=== PATIENT | male | born 1940 | race American Indian/Alaskan Native ===

== ENCOUNTER 2020-05-15 | Outpatient (REF) | payer OTHER, SELFPAY ==
[2020-05-16 11:29] LABS: Microalbumin Urine < 5.0 mg/L
== END 2020-05-15 00:01 | disposition home or self-care (01) ==
LOC: HO.LNP
PROVIDERS: Visit Provider Family Medicine
DX: E11.9 Type 2 diabetes mellitus without complications (principal)
CPT/HCPCS: 82043

== ENCOUNTER → 2020-12-18 09:56 | Outpatient (BNVA) | payer OTHER, SELFPAY | PROVIDERS: PCP Family Medicine; Referring Provider Family Medicine; Visit Provider Internal Medicine Cardiovascular Disease ==

== ENCOUNTER 2021-01-17 11:48 | Outpatient (REF) | payer OTHER, MEDICARE, SELFPAY ==
--- NOTE | ~2021-01-17 | XR_ITS ---
EXAMINATION: BILATERAL SHOULDER CLINICAL INFORMATION: Pain bilateral shoulder COMPARISON: None TECHNIQUE: 4 views each shoulder FINDINGS: Right shoulder: The glenohumeral joint space is normal. There is loss of AC joint space with inferior periarticular spurring. No acute fracture, loose bodies or joint effusion seen. Left shoulder: There is mild loss of left AC and glenohumeral joint space.. No is no loose bodies, bony erosive changes. The soft tissues are normal. XR/XR shoulder LT min 2V IMPRESSION: Mild to moderate degenerative changes bilateral AC joint and glenohumeral joint space. No visible acute fracture, dislocation or subluxation seen.
--- NOTE | ~2021-01-17 | XR_ITS ---
EXAMINATION: BILATERAL SHOULDER CLINICAL INFORMATION: Pain bilateral shoulder COMPARISON: None TECHNIQUE: 4 views each shoulder FINDINGS: Right shoulder: The glenohumeral joint space is normal. There is loss of AC joint space with inferior periarticular spurring. No acute fracture, loose bodies or joint effusion seen. Left shoulder: There is mild loss of left AC and glenohumeral joint space.. No is no loose bodies, bony erosive changes. The soft tissues are normal. XR/XR shoulder RT min 2V IMPRESSION: Mild to moderate degenerative changes bilateral AC joint and glenohumeral joint space. No visible acute fracture, dislocation or subluxation seen.
[2021-01-17 13:40] LABS: Estimated Average Glucose 111 mg/dL; Hemoglobin A1c % 5.5 %
[2021-01-17 14:00] LABS: Alanine Aminotransferase 14 U/L (0-40); Albumin Level 4.1 g/dL (3.5-5.0); Alkaline Phosphatase 51 U/L (39-117); Anion Gap 13 (12-20); Aspartate Amino Transferase 22 U/L (5-37); Bilirubin Total 0.9 mg/dL (0.0-1.0); Blood Urea Nitrogen 18 mg/dL (9-16); Calcium 8.9 mg/dL (8.4-10.2); Carbon Dioxide 24 mmol/L (22-29); Chloride 106 mmol/L (96-108); Estimated Glomerular Filt Rate 60; Glucose Random 98 mg/dL (60-115); Potassium 5.1 mmol/L (3.3-5.1); Sodium 138 mmol/L (135-145); Total Protein 6.8 g/dL (6.5-8.0)
[2021-01-17 14:22] LABS: Folate 10.4 ng/mL (> or = 4.0); Vitamin B12 268 pg/mL (200-900)
[2021-01-17 16:51] LABS: Creatinine Urine 64.84 mg/dL; Microalbumin Urine < 5.0 mg/L
== END 2021-01-17 11:49 | disposition home or self-care (01) ==
LOC: HO.XRAY 11:48
PROVIDERS: PCP Family Medicine; Visit Provider Family Medicine
DX: M25.511 Pain in right shoulder (principal); M25.512 Pain in left shoulder; I10 Essential (primary) hypertension; R73.03 Prediabetes; E53.8 Deficiency of other specified B group vitamins; R26.89 Other abnormalities of gait and mobility
CPT/HCPCS: 36415; 73030; 80053; 82043; 82607; 82746; 83036

== ENCOUNTER 2021-04-03 10:23 | Outpatient (REF) | payer MEDICARE, SELFPAY ==
[2021-04-03 12:08] LABS: Alanine Aminotransferase 16 U/L (0-40); Albumin Level 4.4 g/dL (3.5-5.0); Alkaline Phosphatase 54 U/L (39-117); Anion Gap 15 (12-20); Aspartate Amino Transferase 24 U/L (5-37); Bilirubin Total 0.7 mg/dL (0.0-1.0); Blood Urea Nitrogen 17 mg/dL (9-16); Calcium 9.1 mg/dL (8.4-10.2); Carbon Dioxide 24 mmol/L (22-29); Chloride 105 mmol/L (96-108); Estimated Glomerular Filt Rate > 60; Glucose Fasting 98 mg/dL (60-99); Potassium 4.9 mmol/L (3.3-5.1); Sodium 139 mmol/L (135-145); Total Protein 7.2 g/dL (6.5-8.0)
[2021-04-03 12:11] LABS: Creatinine Urine 89.64 mg/dL; Microalbum/Creatinine Ratio Ur 11.1 ug/mg cr
== END 2021-04-03 10:24 | disposition home or self-care (01) ==
LOC: HO.LAB 10:23
PROVIDERS: PCP Family Medicine; Visit Provider Family Medicine
DX: Z00.00 Encounter for general adult medical examination without abnormal findings (principal); E11.9 Type 2 diabetes mellitus without complications; I10 Essential (primary) hypertension
CPT/HCPCS: 36415; 80053; 82043

== ENCOUNTER → 2021-04-04 11:11 | Outpatient (BNVA) | payer OTHER, MEDICARE, SELFPAY | PROVIDERS: PCP Family Medicine; Visit Provider Physician Assistant | DX: M75.102 Unspecified rotator cuff tear or rupture of left shoulder, not specified as traumatic (principal) | CPT/HCPCS: 99202; J1040 ==

== ENCOUNTER 2021-04-09 14:00 | Outpatient (RCR) | payer OTHER, MEDICARE, SELFPAY ==
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
--- NOTE | 2021-04-16 11:43 | MHC.PT.DC ---
[facility] [place] Office [place] Office [place] Office [address] Kylah Parker 140 [facility] [phone] F: [phone] F: [phone] F: [phone] F: [phone] Physical Therapy Discharge Report Diagnosis: LEFT SHOULDER / LEFT UE STRAIN Date of Surgery: Date of Evaluation: 02/11/21 Date of Discharge: 04/16/21 Treatments to Date: 7 Cancellations to Date: 2 No Shows to Date: 2 Discharge Status: Achieved Goals Improved Function Patient Elected to Stop Discharge Summary: Pt TARAS WFL AROM Lt SH, HIS LEFT SH SUBJECTIVE PAIN FLUCTUATES, BUT IS LESS SINCE INITIAL START- Pt BENEFITTED FROM ED RE SELF-PACING EXER, HE HAS PROGRESSED W STRENGTH FOR SCAP MM- HE MET HIS GOALS AT THIS TIME AND IS D/C'D W HIS HEP Electronically signed by: Yvrose Frankel,PT Please sign and return to therapist. Thank you for your referral.
== END 2021-04-16 11:44 | disposition home or self-care (01) ==
LOC: HO.PT 14:00
PROVIDERS: PCP Family Medicine; Visit Provider Family Medicine
DX: S46.912A Strain of unspecified muscle, fascia and tendon at shoulder and upper arm level, left arm, initial encounter (principal)
CPT/HCPCS: 97110; 97140; 97161

== ENCOUNTER → 2021-04-16 14:23 | Outpatient (BNVA) | payer MEDICARE, SELFPAY | PROVIDERS: PCP Family Medicine; Referring Provider Family Medicine; Visit Provider Internal Medicine Cardiovascular Disease | DX: I25.10 Atherosclerotic heart disease of native coronary artery without angina pectoris (principal); I10 Essential (primary) hypertension | CPT/HCPCS: 99212 ==

== ENCOUNTER → 2021-05-19 14:55 | Outpatient (BNVA) | payer OTHER, MEDICARE, SELFPAY | PROVIDERS: PCP Family Medicine; Visit Provider Orthopaedic Surgery | DX: M75.102 Unspecified rotator cuff tear or rupture of left shoulder, not specified as traumatic (principal) | CPT/HCPCS: 99212 ==

== ENCOUNTER 2021-06-10 16:02 | Outpatient (REF) | payer OTHER, MEDICARE, SELFPAY ==
--- NOTE | ~2021-06-10 | MR_ITS ---
EXAMINATION: MR SHOULDER WITHOUT CONTRAST, LEFT CLINICAL INFORMATION: Left shoulder pain. COMPARISON: Radiographs 01/17/2021 TECHNIQUE: MRI of the shoulder without contrast is performed on a 1.5 Gemma high-field scanner. FINDINGS: ROTATOR CUFF: Severe supraspinatus and infraspinatus tendinosis with a small bursal surface partial tear at the insertion of the junctional fibers. Near-complete tear of the subscapularis tendon with some inferior-most fibers remaining intact. Mild subscapularis muscle atrophy. BICEPS: The biceps tendon is slightly subluxed out of the bicipital groove, as it drapes over the lesser tuberosity where there is ill-defined longitudinal partial tearing. There is chronic ossification at the origin of the biceps short head, possibly a remote, healed avulsion or enthesopathy of the coracoid process. CORACOACROMIAL ARCH: The undersurface of the acromion is laterally downsloping with anterolateral subacromial spurring. Moderate acromioclavicular osteoarthritis. LABRUM/CAPSULE: No definite labral tear. GLENOHUMERAL JOINT/MARROW: Moderate joint effusion. Degenerative spurring along the greater tuberosity, degenerative cysts of the anterior superior humeral head, and small osteophytes along the glenoid rim. ADDITIONAL FINDINGS: None. MR/MR shoulder LT wo con IMPRESSION: Near-complete subscapularis tendon tear. Mild muscle atrophy. Longitudinal partial tearing of the proximal biceps tendon which is slightly subluxed out of the bicipital groove. Severe supraspinatus/infraspinatus tendinopathy with minimal bursal surface partial tear at the insertion of the junctional fibers. Anterolateral subacromial spurring. Moderate acromioclavicular osteoarthritis. Mild glenohumeral osteoarthritis with a moderate joint effusion.
== END 2021-06-10 16:03 | disposition home or self-care (01) ==
LOC: HO.MRI 16:02
PROVIDERS: PCP Family Medicine; Visit Provider Physician Assistant
DX: M75.102 Unspecified rotator cuff tear or rupture of left shoulder, not specified as traumatic (principal); M12.812 Other specific arthropathies, not elsewhere classified, left shoulder; M25.512 Pain in left shoulder; R29.898 Other symptoms and signs involving the musculoskeletal system
CPT/HCPCS: 73221

== ENCOUNTER → 2021-06-20 10:58 | Outpatient (BNVA) | payer OTHER, MEDICARE, SELFPAY | PROVIDERS: PCP Family Medicine; Visit Provider Orthopaedic Surgery | DX: S46.812D Strain of other muscles, fascia and tendons at shoulder and upper arm level, left arm, subsequent encounter (principal) | CPT/HCPCS: 99212 ==

== ENCOUNTER → 2021-09-12 11:34 | Outpatient (BNVA) | payer OTHER, MEDICARE, SELFPAY | PROVIDERS: PCP Family Medicine; Visit Provider Physician Assistant | DX: Z01.818 Encounter for other preprocedural examination (principal); M75.102 Unspecified rotator cuff tear or rupture of left shoulder, not specified as traumatic | CPT/HCPCS: 99212 ==

== ENCOUNTER → 2021-10-30 15:24 | Outpatient (BNVA) | payer MEDICARE, SELFPAY | PROVIDERS: PCP Family Medicine; Referring Provider Family Medicine; Visit Provider Internal Medicine Cardiovascular Disease | DX: I10 Essential (primary) hypertension (principal); Z79.82 Long term (current) use of aspirin; Z79.899 Other long term (current) drug therapy | CPT/HCPCS: 93005; 99212 ==

== ENCOUNTER 2021-11-08 10:12 | Outpatient (REF) | payer MEDICARE, SELFPAY ==
[2021-11-08 11:05] LABS: Estimated Average Glucose 117 mg/dL; Hemoglobin A1c % 5.7 %
[2021-11-08 11:21] LABS: Alanine Aminotransferase 25 U/L (0-40); Albumin Level 4.3 g/dL (3.5-5.0); Alkaline Phosphatase 54 U/L (39-117); Anion Gap 13 (12-20); Aspartate Amino Transferase 30 U/L (5-37); Bilirubin Total 0.9 mg/dL (0.0-1.0); Blood Urea Nitrogen 22 mg/dL (9-16); Calcium 9.4 mg/dL (8.4-10.2); Carbon Dioxide 27 mmol/L (22-29); Chloride 105 mmol/L (96-108); Estimated Glomerular Filt Rate > 60; Glucose Fasting 103 mg/dL (60-99); Potassium 4.7 mmol/L (3.3-5.1); Sodium 140 mmol/L (135-145); Total Protein 7.4 g/dL (6.5-8.0)
== END 2021-11-08 10:13 | disposition home or self-care (01) ==
LOC: HO.LAB 10:12
PROVIDERS: PCP Family Medicine; Visit Provider Family Medicine
DX: Z00.00 Encounter for general adult medical examination without abnormal findings (principal); R73.03 Prediabetes
CPT/HCPCS: 36415; 80053; 83036

== ENCOUNTER → 2021-11-10 11:05 | Outpatient (BNVA) | payer OTHER, MEDICARE, SELFPAY | PROVIDERS: PCP Family Medicine; Visit Provider Physician Assistant | DX: Z01.818 Encounter for other preprocedural examination (principal); S46.009A Unspecified injury of muscle(s) and tendon(s) of the rotator cuff of unspecified shoulder, initial encounter | CPT/HCPCS: 99212 ==

== ENCOUNTER 2021-11-12 10:18 | Day surgery (SDC) | payer OTHER, MEDICARE, SELFPAY ==
--- NOTE | 2021-11-11 08:40 | HO.ANESPROP2 ---
Documented by User: Clara Patrick NP 11/11/21 08:54 HPI - Anesthesia Eval Consult details Narrative: 81yo M for Left Arthroscopic Rotator Cuff Repair Stable at routine cardiac visit 10/2021 with 6 month f/u [facility] Active Problems Active Problems: All Active Problems (Updated 10/06/21 @ 17:17 by Tony Curtis MD) GERD (gastroesophageal reflux disease) (Acute) Screening for colon cancer (Acute) Rotator cuff injury (Acute) Throat clearing (Acute) Difficulty swallowing (Acute) Pressure in head (Acute) Dizziness (Acute) Loss of taste (Acute) Essential hypertension (Acute) Pre-diabetes (Acute) Anterior thigh numbness (Acute) Low back pain (Acute) Preop cardiovascular exam (Acute) Coronary artery disease (Acute) Cervicalgia (Acute) Left shoulder strain (Acute) Rash (Acute) Stable angina (Acute) Dermatitis (Acute) Imbalance (Acute) Unsteady gait (Acute) Left shoulder pain (Acute) Right shoulder pain (Acute) Annual physical exam (Acute) Screening for colon cancer (Acute) Neoplasm of uncertain behavior (Acute) Painful arc syndrome of left shoulder (Acute) Depression (Acute) Anxiety with depression (Acute) Mood disorder (Acute) Memory changes (Acute) Rupture of subscapularis tendon (Acute) Past Medical History Medical History Anxiety and depression Back pain CAD (coronary artery disease) Cervicalgia GERD (gastroesophageal reflux disease) HTN (hypertension) Memory loss Mood disorder Pre-diabetes Shoulder pain Stable angina Unsteady gait Family History Family History Father No problems noted. Mother No problems noted. Surgical History Surgical History History of back surgery History of eye surgery Hx of colonoscopy Social History Social History Housing: House Alcohol intake: current Alcohol intake frequency: a few times a week Patient Tobacco Use Status: Former Tobacco user Quit Date: 1994 Years Smoked: 30-35 years e-Cigarette/Vaping Use: Never Used Second Hand Smoke Exposure: No Use of substances other than those prescribed or required for medical reasons: No Are you DNR?: No Advance Directives: No Advance Directives Information Provided: Yes Recently lost weight without trying: No service: No Current occupational status: retired Current occupation: rt hand Current occupational exposures/hazards: No Cognitive needs: No Hearing needs: No Vision needs: No Meds Allergies Allergy/AdvReac Type Severity Reaction Status Date / Time No Known Allergies Allergy Verified 11/10/21 11:29 Home Medications Medication Instructions Recorded Confirmed Last Taken Type atorvastatin 20 mg tablet 20 mg PO DAILY 05/15/20 11/10/21 11/11/21 History omeprazole 20 mg capsule,delayed 20 mg PO DAILY 05/15/20 11/10/21 11/12/21 History release tamsulosin 0.4 mg capsule 0.4 mg PO DAILY 05/15/20 11/10/21 Unknown History flaxseed oil 1,000 mg capsule 1,000 mg PO DAILY 12/26/20 11/10/21 11/11/21 History (Terry-3 Flaxseed Oil) omega 3-rfg-dbg-fish oil 900 cap PO 12/26/20 11/10/21 Unknown History mg-1,400 mg capsule,delayed release (Fish Oil) aspirin 81 mg tablet,delayed 81 mg PO DAILY 04/16/21 11/12/21 Unknown History release (Adult Low Dose Aspirin) Exam Exam Date and Time: November 11, 2021 0840 Pertinent Lab Results Pertinent Lab Results: Laboratory Tests 11/08/21 10:22 Sodium 140 Potassium 4.7 Chloride 105 Carbon Dioxide 27 BUN 22 H Creatinine 1.13 Narrative Narrative: EKG 10/2021 Sinus bradycardia 58/min, RBBB, abnormal ECG, QTc 437 msec Assessment and Plan Assessment Anesthesia Assessment: Chart Reviewed Documented by User: Imtiaz Apple MD 11/12/21 12:11 [facility] Past Medical History Medical History Anxiety and depression Back pain CAD (coronary artery disease) Cervicalgia GERD (gastroesophageal reflux disease) HTN (hypertension) Memory loss Mood disorder Pre-diabetes Shoulder pain Stable angina Unsteady gait Family History Family History Father No problems noted. Mother No problems noted. Family history of problems with anesthesia: No Surgical History Surgical History History of back surgery History of eye surgery Hx of colonoscopy History of Problems with Anesthesia: No Social History Social History Housing: House Alcohol intake: current Alcohol intake frequency: a few times a week Patient Tobacco Use Status: Former Tobacco user Quit Date: 1994 Smoked: 30-35 years e-Cigarette/Vaping Use: Never Used Second Hand Smoke Exposure: No Use of substances other than those prescribed or required for medical reasons: No Are you DNR?: No Advance Directives: No Advance Directives Information Provided: Yes Recently lost weight without trying: No service: No Current occupational status: retired Current occupation: rt hand Current occupational exposures/hazards: No Cognitive needs: No Hearing needs: No Vision needs: No Meds Allergies Allergy/AdvReac Type Severity Reaction Status Date / Time No Known Allergies Allergy Verified 11/10/21 11:29 Home Medications Medication Instructions Recorded Confirmed Last Taken Type atorvastatin 20 mg tablet 20 mg PO DAILY 05/15/20 11/10/21 11/11/21 History omeprazole 20 mg capsule,delayed 20 mg PO DAILY 05/15/20 11/10/21 11/12/21 History release tamsulosin 0.4 mg capsule 0.4 mg PO DAILY 05/15/20 11/10/21 Unknown History flaxseed oil 1,000 mg capsule 1,000 mg PO DAILY 12/26/20 11/10/21 11/11/21 History (Terry-3 Flaxseed Oil) omega 6-fsf-ogb-fish oil 900 cap PO 12/26/20 11/10/21 Unknown History mg-1,400 mg capsule,delayed release (Fish Oil) aspirin 81 mg tablet,delayed 81 mg PO DAILY 04/16/21 11/12/21 Unknown History release (Adult Low Dose Aspirin) Exam Airway Mallampati Class: III TM Dist: >3cm Neck ROM: Full Assessment and Plan Assessment Anesthesia Assessment: Anesthesia Plan Discussed Final Anesthetic Review Family History of Problems with Anesthesia: No History of Problems with Anesthesia: No NPO: Yes ASA Class: III Final Preanesthetic Review: No Changes in Pt Med Stat, Meds/Allgs Chart Reviewed, Consent Obtained/Reviewed and Anes Risks/Benef Reviewed Patient Risk: Intermediate Procedure Risk: Intermediate Anesthetic Plan Anesthetic Plan: GA and Regional Block Disposition: Standard PACU
[2021-11-12] VITALS (7 sets, daily range): BP systolic 143–188; BP diastolic 72–96; PULSE 55–85; RESP 16–18; TEMP 36.3–36.4; O2SAT 96–99; BMI 26.9
--- NOTE | 2021-11-12 11:50 | MHC.SHP ---
Pre-Procedural Eval Section A Date of Service: 11/12/21 The patient is an INPATIENT: No Changes since office visit: Yes Patient answered all questions; No Cold of Flu in the past 2 weeks, No New Medical Problems and No Changes in Medication The History & Physical has been completed within 30 days and I have reviewed it.: Yes Section B Chief Complaint: rotator tear Allergies: Allergies Allergy/AdvReac Type Severity Reaction Status Date / Time No Known Allergies Allergy Verified 11/10/21 11:29 Plan I have reviewed the history and physical and performed a pertinent physical examination on my patient. No changes have occurred unless specified.
[2021-11-12] MEDS: Lactated Ringers 1,000 ML 100 ML IVCONT (12:00)
--- NOTE | 2021-11-12 14:15 | PM.OP ---
Brief Operative Note Date of Service: 11/12/21 Pre-op diagnosis: left shoulder internal derangement Post-op diagnosis: other (1) Left shoulder subscapularis tear 2) left shoulder SLAP tear 3) left shoulder LINDSEY) Procedure: 1) subscapularis repair with biceps tenotomy and labral debridement 2) Sub-acromial decompression Implants: Jayy and Nephalethea Surgeon: Nikita Guzman MD Anesthesia: GETA and regional Was an Medical Sales Associate used for this Procedure?: Yes Medical Sales Associate: Fady Perea Estimated blood loss (mL): 10 IV fluids (mL): 1,000 Pathology: none sent Condition: stable Disposition: PACU
--- NOTE | 2021-11-18 12:37 | P.OP_ITS ---
Operative Note Operative Note Date of Service: 11/18/21 Narrative: Date of Service: 11/12/21 Pre-op diagnosis: left shoulder internal derangement Post-op diagnosis: other (1) Left shoulder subscapularis tear 2) left shoulder SLAP tear 3) left shoulder LINDSEY) Procedure: 1) subscapularis repair with biceps tenotomy and labral debridement 2) Sub- acromial decompression Implants: Hope and Nephew Surgeon: Nikita Guzman MD Anesthesia: GETA and regional Was an Claims Associate used for this Procedure?: Yes Claims Associate: Fady Perea Estimated blood loss (mL): 10 IV fluids (mL): 1,000 Pathology: none sent Condition: stable Disposition: PACU Procedure in detail: Patient was brought to the operating room and placed the the beach chair position. All bony prominences were well padded and the limb was prepped and draped in standard sterile fashion. A time out was called to identify proper site, proper procedure and proper surgeon. IV antibiotics per weight were administered. I began by making a posterolateral stab incision with a 15 blade. A blunt trochar was placed into the glenohumeral joint and I insufflated the joint with saline and a 30 degree arthroscope was placed. I established an outside- in anterior portal just distal to the biceps tendon. I then began my inspection of the glenohumeral joint. There waa G! canges the glenoid. HH cartilage was intact and normal. There was a Type 2 SLAP tear and a tear of the proximal 50-60% of the humeral insertion of the subscapularis. There was no undersurface rotator cuff tearing. I began by tenotomizing the biceps. I then circumferentially debrided the labrum. I then released the subscapularis anteriorly/posteriorly and superiorly. It was mobile. I then placed 3 looped sutures through the free edge of the torn subscapularis and debrided the insertion down to bleeding bone. I then placed one Hope and Nephew helacoil knotless anchor and cinched the subscapularis down to the anchor. I had excellent reproduction of his anatomy. I then removed the trochar and entered the subacromial space. A direct lateral portal was then established and I performed a bursectomy. The cuff was then examined and was without tearing. I performed a 5 mm subacromial decompression. I was satisfied with the extent of resection and I then removed all instrumentation. Portals were closed with nylon. Patient was placed in an abduction sling, extubated and brought to the recovery room in stable condition. There were no known complications.
== END 2021-11-12 15:36 | disposition home or self-care (01) ==
LOC: HO.SSS 10:18
PROVIDERS: PCP Family Medicine; Visit Provider Orthopaedic Surgery
PROC: (CPT 29827; principal; 2021-11-12 12:10)
DX: S46.012A Strain of muscle(s) and tendon(s) of the rotator cuff of left shoulder, initial encounter (principal); S43.432A Superior glenoid labrum lesion of left shoulder, initial encounter; M75.42 Impingement syndrome of left shoulder; X58.XXXA Exposure to other specified factors, initial encounter; Y93.9 Activity, unspecified; Y92.9 Unspecified place or not applicable; Y99.8 Other external cause status; I10 Essential (primary) hypertension; I25.10 Atherosclerotic heart disease of native coronary artery without angina pectoris; F41.8 Other specified anxiety disorders; R73.03 Prediabetes; R26.81 Unsteadiness on feet; R41.3 Other amnesia; Z79.82 Long term (current) use of aspirin; Z79.899 Other long term (current) drug therapy; Z87.891 Personal history of nicotine dependence
CPT/HCPCS: 29827; 29826; C1713; J0171; J0690; J1100; J2250; J2405; J2795; J3010

== ENCOUNTER 2021-11-17 08:39 | Outpatient (RCR) | payer MEDICARE, SELFPAY | END 2022-02-05 12:48 | disposition home or self-care (01) | LOC: HO.PT 08:39 | PROVIDERS: Visit Provider Physician Assistant | DX: M12.812 Other specific arthropathies, not elsewhere classified, left shoulder (principal) ==

== ENCOUNTER → 2021-11-17 13:37 | Outpatient (BNVA) | payer OTHER, MEDICARE, SELFPAY | PROVIDERS: PCP Family Medicine; Visit Provider Physician Assistant | DX: M12.812 Other specific arthropathies, not elsewhere classified, left shoulder (principal) | CPT/HCPCS: 99212 ==

== ENCOUNTER → 2022-01-27 14:07 | Outpatient (BNVA) | payer MEDICARE, SELFPAY | PROVIDERS: PCP Family Medicine; Visit Provider Physician Assistant | DX: M12.812 Other specific arthropathies, not elsewhere classified, left shoulder (principal) | CPT/HCPCS: 99212 ==

== ENCOUNTER → 2022-04-23 13:35 | Outpatient (BNVA) | payer MEDICARE, SELFPAY | PROVIDERS: PCP Family Medicine; Visit Provider Nurse Practitioner Family | DX: R40.0 Somnolence (principal); R06.83 Snoring | CPT/HCPCS: 99202 ==

== ENCOUNTER → 2022-05-04 15:39 | Outpatient (BNVA) | payer MEDICARE, SELFPAY | PROVIDERS: PCP Family Medicine; Visit Provider Physician Assistant | DX: M12.812 Other specific arthropathies, not elsewhere classified, left shoulder (principal) | CPT/HCPCS: 99212 ==

== ENCOUNTER 2022-05-22 11:59 | Outpatient (REF) | payer MEDICARE, SELFPAY | END 2022-05-22 12:00 | disposition home or self-care (01) | LOC: HO.SH 11:59 | PROVIDERS: Visit Provider Family Medicine | DX: Z01.118 Encounter for examination of ears and hearing with other abnormal findings (principal); H90.3 Sensorineural hearing loss, bilateral | CPT/HCPCS: 92557; 92567 ==

== ENCOUNTER 2023-03-18 11:58 | Outpatient (REF) | payer MEDICARE, SELFPAY ==
[2023-03-18 14:46] LABS: Alanine Aminotransferase 16 U/L (0-40); Albumin Level 4.3 g/dL (3.5-5.0); Alkaline Phosphatase 59 U/L (39-117); Anion Gap 12 (12-20); Aspartate Amino Transferase 22 U/L (5-37); Bilirubin Direct 0.2 mg/dL (0.0-0.5); Bilirubin Total 0.5 mg/dL (0.0-1.0); Blood Urea Nitrogen 17 mg/dL (9-16); Calcium 9.2 mg/dL (8.4-10.2); Carbon Dioxide 27 mmol/L (22-29); Chloride 106 mmol/L (96-108); Cholesterol 260 mg/dL (<200); Estimated Glomerular Filt Rate > 60; Glucose Fasting 69 mg/dL (60-99); HDL Cholesterol 74 mg/dL (>40); LDL Cholesterol Calculated 160 mg/dL (<100); Potassium 4.6 mmol/L (3.3-5.1); Sodium 140 mmol/L (135-145); Total Protein 7.4 g/dL (6.5-8.0); Triglycerides 130 mg/dL (<150)
== END 2023-03-18 11:59 | disposition home or self-care (01) ==
LOC: HO.CHCLDS 11:58
PROVIDERS: Visit Provider Student in an Organized Health Care Education/Training Program
DX: I10 Essential (primary) hypertension (principal)
CPT/HCPCS: 36415; 80048; 80061; 80076

== ENCOUNTER 2024-10-31 09:05 | Outpatient (REF) | payer MEDICARE, SELFPAY ==
--- OUTSIDE RECORDS SUMMARY | 2024-10-31 09:45 | XMS_ITS | Clinical Summary ---
Author Organization [facility] Address [address] [place] [phone] Phone Care Team Providers Care Lawyer Criminal Name Role Phone Tony Curtis MD Primary Care Provider Allergies Active Allergy Reactions Criticality Noted Date Comments Citalopram 09/21/2016 Per transfer records- urinary retention Hydralazine Rash High 12/06/2020 Medications Kyle-3 Fatty Acids (Super Kyle 3 EPA/DHA) 1000 MG capsule Take 1 capsule by mouth 1 (one) time each day Active aspirin (ST MULU) 81 MG EC tablet Take 1 tablet by mouth 1 (one) time each day Active atorvastatin (LIPITOR) 20 MG tablet Take 1 tablet by mouth 1 (one) time each day Active cholecalciferol (VITAMIN D-3) 25 MCG (1000 UT) capsule 1 capsule 1 (one) time each day Active Flaxseed, Linseed, (Flax Seed Oil) 1000 MG capsule Take 1 capsule by mouth 1 (one) time each day Active lisinopril (PRINIVIL,ZESTR IL) 20 MG tablet Take 1 tablet by mouth every night Active omeprazole (PriLOSEC) [address] capsule Take 1 capsule by mouth 1 (one) time each day Active Ascorbic Acid (VITAMIN C GUMMIE PO) Take by mouth Active tamsulosin (FLOMAX) 0.4 MG 24 hr capsule Take 0.4 mg by mouth 1 (one) time each day Active sertraline (ZOLOFT) 50 MG tablet Take 100 mg by mouth 1 (one) time each day 01/08/2022 Active Active Problems Problem Noted Date Diagnosed Date Chronic kidney disease, stage 2 (mild) 2 Hypertensive disorder 03/04/2022 Hypertensive chronic kidney disease stage 2 06/04 Hypertensive chronic kidney disease stage 3 060 10/2020 Chronic kidney disease stage 2 11/07/2020 Stage 3a chronic kidney disease 11/07/2020 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 Sloan Benign essential hypertension 12/05/2009 Overview (03/04/2022): Dr. Gamez History of hematuria 08/07/2009 Resolved Problems Problem Noted Date Diagnosed Date Resolved Date Amnesia 03/04/2022 03/04/2022 Cataract 03/04/2022 03/04/2022 Anxiety 09/21/2016 03/04/2022 Calcaneal spur of left foot 09/21/2016 03/04/2022 Constipation 09/21/2016 03/04/2022 Degeneration of intervertebral disc 09/21/2016 03/04/2022 Finding of brain 09/21/2016 03/04/2022 Overview (03/04/2022): 02/2016-abnormal MRI. Neuro referral Osteoarthritis of hip 09/21/20162021 Spinal stenosis 09/21/2016 03/04/2022 Overview (03/04/2022): Lumbar Telangiectasia disorder 09/21/201602/04 Varicose veins of lower extremity 09/21/2016 03/04/2022 Gastro-esophageal reflux dis ease without esophagitis 08/17/2016 03/04/2022 Major depressive disorder 02/08/2013 Overview (03/04/2022): Has failed citalopram, fluoxetine, buproprion Neck pain 05/20/2011 03/04/2022 Overview (03/04/2022): Dr. 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 Hill - [facility] - no need for [facility] Extensive workup at [facility] for word- finding difficulty - psychiatry, neuropsychology, neurology, MRI, labs - possible chronic microangiopathic / small vessel ischemic changes; mild cognitive changes, primarily affecting language skills. Saw Dr Hill- 04/2016 Hyperlipidemia 10/22/2010 03/04/2022 Overview (03/04/2022): Intolerance to simvastatin (muscle aches), to atorvastatin (headache, constipation) Benign prostatic hyperplasia 08/07/2009 03/04/2022 Overview (03/04/2022): Dr. Sloan status post turp Coronary arteriosclerosis 08/07/2009 Overview (03/04/2022): Elias Boo Cook, Dr Sylvester Angioplasty with stenting LAD, Total occlusion RCA 05/12 MIBI (05/14)- normal Lumbago 08/07/2009 03/04/2022 Overview (03/04/2022): S/P DISC SURGERY 1977,then [address] Rivera and then 03/2016- by Dr Billings- L4-L5 decompression with Coflex device Psoriatic arthritis 08/07/2009 03/04/20 Overview (03/04/2022): Dr. Hurt (chief construction inspector), Ambrosio (x ray developer) On Humira since 09/2016 Immunizations Immunization Administration Dates Next Due Influenza Split High Dose Preservative Free IM 0 03/14/2018,03/10/2017 Pneumococcal Conjugate 13-Valent 07/20/2014 Pneumococcal Polysaccharide 02/07/2016, 5 Tdap 09/04/2011 Zoster 03/23/2012 Family History Medical History Relation Comments Hypertension Father Stroke Father Hypertension Mother Hypertension Sibling Relation Status Comments Father Mother Sibling Social History Tobacco Use Types Packs/Day Years Used Date Smoking Tobacco: Never Smokeless Tobacco: Never Tobacco Cessation:Counseling Given: Not Answered Alcohol Use Standard Drinks/Week Comments Yes 0 (1 standard drink = 0.6 oz pure alcohol) Alcoholic Drinks/day: 1-2 drinks per day Sex and Gender Information Value Date Recorded Sex Assigned at Not on file Legal Sex Male 4:44 PM EST Gender Identity Not on file Sexual Orientation Not on file Last Filed Vital Signs Vital Sign Reading Time Taken Comments Blood Pressure 133/75 03/05/2022 2:06 PM EDT Pulse 63 03/05/2022 2:06 PM EDT Temperature - - Respiratory Rate - - Oxygen Saturation - - Inhaled Oxygen Concentration - - Weight 72.6 kg (160 lb) 03/05/2022 2:06 PM EDT Height 165.1 cm (5' 5 ) 06/13/2021 11:35 AM EST Body Mass Index 26.63 06/13/2021 11:35 AM EST Plan of Treatment Health Maintenance Due Date Last Done Comments Influenza Vaccine (Season Ended) 2025 03/14/2018, 03/10/2017 Pneumococcal Vaccine: 50+ Years Completed 02/07/2016, 07/20/2014, 04/15/2005 Pneumococcal Vaccine: Peds (0 to 5 Years) and At-Risk Patients (6 to 49 Years) Discontinued 02/07/2016, 07/20/2014, 04/15/2005 Hepatitis B Vaccine Aged Out No longe r eligible based on patient's age to complete this topic Care Teams Lawyer Criminal Relationship Specialty Start Date End Date Tony Curtis MD [facility] [address] [place] [address] PCP - General Family Medicine 03/05/22
--- OUTSIDE RECORDS SUMMARY | 2024-10-31 09:45 | XMS_ITS | Clinical Summary ---
Author Organization [employer] Address [address] [facility] [address] [place] [address] Care Team Providers Care Chemical Research Technician Name Role Phone Alem Dennison MD Primary Care Provider [phone] Allergies No known active allergies Medications * This document contains information received from the source organization and may not represent a complete record from that organization. aspirin 81 MG EC tablet Take 1 tablet (81 mg) by mouth Once per day. 90 tablet 1 02/01/20 24 Active atorvastatin (Lipitor) 20 MG tablet Take 1 tablet (20 mg) by mouth Once per day. 90 tablet 3 02/01/20 24 025 Active lisinopril 10 MG tablet Take 1 tablet (10 mg) by mouth Once per day. 90 tablet 02/01/20 24 025 Active tamsulosin (Flomax) 0.4 MG 24 hr capsule Take 1 capsule (0.4 mg) by mouth Once per day. 90 capsule 02/01/20 24 025 Active omeprazole (PriLOSEC) [address] capsule TAKE 1 CAPSULE BY MOUTH BEFORE BREAKFAST. DO NOT CRUSH OR CHEW 90 capsule 1 08/21/19 25 Active sertraline (Zoloft) 50 MG tablet Take 1 tablet (50 mg) by mouth Once per day. 90 tablet 10/31/19 25 026 Active donepezil (Aricept) 5 MG tablet Take 1 tablet (5 mg) by mouth at bedtime. 30 tablet 10/31/19 25 026 Active donepezil (Aricept) 5 MG tablet Take 1 tablet (5 mg) by mouth at bedtime. 30 tablet 02/01/20 24 025 Discontinued(Re order (will not trigger notification to Pharmacy)) sertraline (Zoloft) 50 MG tablet Take 1 tablet (50 mg) by mouth Once per day. 90 tablet 3 04/12/20 24 025 Discontinued(Re order (will not trigger notification to Pharmacy)) Active Problems Problem Noted Date Diagnosed Date Primary hypertension 03/18/2023 Hypercholesteremia 03/18/2023 Anxiety and depression 03/18/2023 Encounters Date Type Department Care Team Description 10/30/2024 11:40 AM EDT Telemedicine [facility] [address] [place] [address] Alem Dennison MD Memory loss (Primary Dx); Primary hypertension; Anxiety and depression; Arthralgia, unspecified joint 10/30/2024 Travel 08/17/2024 Refill [facility] [address] [place] [address] Alem Dennison MD from Last 3 Months Immunizations Name Administration Dates Next Due Influenza High-dose Quadrivalent Preservative Fr ee 06/02/2023 Influenza, seasonal, injectable, preservative fr ee 04/12/2024 Pfizer Covid-19 Vaccine 12+ 04/12/2024 Pneumococcal Conjugate PCV 20 07/21/2023 Tdap 06/02/2023 Family History Medical History Relation Name Comments htn Father Breast cancer Sister Relation Name Status Comments Father Mother Sister Social History Tobacco Use Types Packs/Day Years Used Date Smoking Tobacco: Former Cigarettes Q uit: 1993 Smokeless Tobacco: Never Tobacco Cessation:Counseling Given: Not Answered Alcohol Answer Date Recorded Frequency of Alcohol Consumption Not on file 06/02/2023 Average Number of Drinks Not on file 023 Frequency of Binge Drinking Not on file 05/06 Score 0 06/02/2023 Housing Stability Answer Date Recorded What is your housing situation today? I have wild monreal 06/02/[address] you li ve. Do you have problems with any of the following? None of the above 06/02/2023 Food Insecurity Answer Date Recorded Within the past 12 months, y ou worried that your food would run out before you got money to buy more: Never True 06/02/2023 Within the past 12 months,th e food you bought just didn't last and you didn't have enough money to get more: Never True Transportation Answer Date Recorded In the past 12 months, has l ack of transportation kept you from medical appts, meetings, work or from getting things needed for daily living? No 06/02/2023 Utilities Answer Date Recorded In the past 12 months, has t he electric, gas, oil or water company threatened to shut off services in your home? No 06/02/2023 Sex and Gender Information Value Date Recorded Sex Assigned at Male 03/17/2023 11:20 AM EDT Legal Sex Male 11:17 AM EDT Gender Identity Male 03/17/2023 11:20 AM EDT Sexual Orientation Straight 03/17/2023 11 :20 AM EDT Last Filed Vital Signs Vital Sign Reading Time Taken Comments Blood Pressure 138/81 05/23/2024 11:24 AM EST Pulse 73 05/23/2024 11:24 AM EST Temperature 36.7 ??C (98.1 ??F) 05/23/2024 11:[address] Respiratory Rate 18 05/23/2024 11:24 AM EST Oxygen Saturation 95% 12/16/2023 11:43 AM EDT Inhaled Oxygen Concentration - - Weight 71.7 kg (158 lb) 05/23/2024 11:24 AM EST Height 165.1 cm (5' 5 ) 05/23/2024 11:24 AM EST Body Mass Index 26.29 05/23/2024 11:24 AM EST Plan of Treatment Upcoming Encounters Date Type Department Care Team (Late st Contact Info) Description 11/28/2024 11:15 AM EDT Telemedicine [facility] [address] [place] [address] Alem Dennison MD [address] [place] [address] Health Maintenance Due Date Last Done Comments Depression Screening 1940 Alcohol/Substance Use Screening 1952 Zoster Vaccines (2 of 3) 05/18/2012 03/23/2012 RSV Patients and Patients Aged 60 years or older (1 - 1-dose 75+ series) 01/16/2015 SDOH Screening 06/02/2024 06/02/2023 Tobacco Screening 05/23/2025 05/23/2024 Lipid Panel 03/18/2028 03/18/2023 DTaP/Tdap/Td Vaccines (3 - Td or Tdap) 06/02/2033 06/02/2023, 09/04/2011 Pneumococcal Vaccine: 50+ Years Completed 07/21/2023, 02/07/2016, 07/20/2014, Additional history exists COVID-19 Vaccine Completed 04/12/2024 Influenza Vaccine Completed 04/12/2024, , 03/14/2018, Additional history exists HIB Vaccines Aged Out No longer eligi ble based on patient's age to complete this topic HPV Vaccines Aged Out No longer eligi ble based on patient's age to complete this topic Hepatitis A Vaccines Aged Out No long er eligible based on patient's age to complete this topic Hepatitis B Vaccines Aged Out No long er eligible based on patient's age to complete this topic IPV Vaccines Aged Out No longer eligi ble based on patient's age to complete this topic Meningococcal Vaccine Aged Out No margie jimmy eligible based on patient's age to complete this topic RSV under 20 months Aged Out No longe r eligible based on patient's age to complete this topic Rotavirus Vaccines Aged Out No longer eligible based on patient's age to complete this topic Procedures Procedure Name Priority Date/Time Associated Diagnosis Comments LIPID PANEL, STANDARD Routine 03/18/2023 12:01 PM EDT Primary hypertension from Last 3 Months or Most Recently Relevant to Health Maintenance Results * (ABNORMAL) Lipid Panel, Standard (03/18/2023 12:01 PM EDT) Triglycerides 130 <150 mg/dL [facility] Comment:Desirable Triglyceri de: less than 150 mg/dLBorderline High Triglyceride 150-199 mg/dLHigh Triglyceride: 200-499 mg/dLVery High Triglyceride: greater than or equal to 5OO mg/dL Cholesterol 260(H) <200 mg/dL [facility] Comment:Desirable Cholestero l: less than 200 mg/dLBorderline High Cholesterol: 200-239 mg/dLHigh Cholesterol: greater than 239 mg/dL LDL Cholesterol Calculated 160(H) <100 mg/dL [facility] Comment:Desirable LDL: less than 100 mg/dLNear Optimal/Above Optimal LDL: 110- 129 mg/dLBorderline High LDL: 130-159 mg/dLHigh LDL: 160-189 mg/dLVery High LDL: greater than or equal to 190 mg/dL HDL Cholesterol 74 >40 mg/dL [facility] Comment:Desirable HDL: great er than 40 mg/dL Note: This HDL assay may give artificially low results in patients with liver disease. Blood Venous blood specimen / Unknown 03/18/2023 12:01 PM EDT 03/18/2023 2:08 PM EDT us Alem Dennison MD LAB BLOOD ORDERABLES Final Resul t [facility] [address] [place] [phone] from Last 3 Months or Most Recently Relevant to Health Maintenance Insurance [employer] Care Teams Chemical Research Technician Relationship Specialty Start Date End Date Alem Dennison MD [address] [place] [id number] PCP - General Family Medicine 04/02/23
--- OUTSIDE RECORDS SUMMARY | 2024-10-31 09:45 | XMS_ITS | Encounter Summary ---
Author Organization [employer] Address [address] [facility] [address] [place] [address] Care Team Providers Care Watchguard Name Role Phone Alem Dennison MD Primary Care Provider [phone] Encounter Details Date Type Department Care Team (Latest Contact Info) Description 10/30/2024 Travel Social History Tobacco Use Types Packs/Day Years Used Date Smoking Tobacco: Former Cigarettes Q uit: 1992 Smokeless Tobacco: Never Alcohol Answer Date Recorded Frequency of Alcohol Consumption Not on file 06/02/2023 Average Number of Drinks Not on file 023 Frequency of Binge Drinking Not on file 05/06 Score 0 06/02/2023 Housing Stability Answer Date Recorded What is your housing situation today? I have wildandrea monreal 06/02/[address] you [...] Orientation Straight 03/17/2023 11 :20 AM EDT documented as of this encounter Plan of Treatment Upcoming Encounters Date Type Department Care Team (Late st Contact Info) Description 11/28/2024 11:15 AM EDT Telemedicine [facility] [address] [place] [address] Alem Dennison MD [address] [place] [address] documented as of this encounter Visit Diagnoses Not on filedocumented in this encounter Care Teams Watchguard Relationship Specialty Start Date End Date Alem Dennison MD [address] [place] [id number] PCP - General Family Medicine 04/02/23 documented as of this encounter
--- OUTSIDE RECORDS SUMMARY | 2024-10-31 09:45 | XMS_ITS ---
Author Organization [facility] [employer] Address [address] [facility] [place] [address] Care Team Providers Care Copywriter Name Role Phone Alem Dennison Primary Care Provider Noam Da Silva Unavailable [phone] Medications Medication SIG (Take, Route, Frequency, Duration) Notes Start Date End Date Status Donepezil HCl 5 MG 1 tablet at bedtime Orally Once a day for 30 day(s) Active Physical Therapy . . . 2-3x/week for 3- 4 weeks 07/13/2023 Active Fish Oil 1000 MG Orally Not -Taking Flax Seed Oil 1300 MG Orally Not-Taking Omeprazole 20 MG Orally Not -Taking Vitamin D 25 MCG (1000 UT) 1 tablet Orally Once a day for 30 day(s) Not-Taking Humira Pen 40 MG/0.8ML as directed Subcutaneous Not-Taking Lisinopril 20 MG Orally Act martinez Tamsulosin HCl 0.4 MG 1 capsule Orally O nce a day for 30 day(s) Active Aspirin 81 MG 1 tablet Orally Once a day Active Sertraline HCl 100 MG 1 tablet Orally On ce a day for 30 day(s) Active Atorvastatin Calcium 20 MG Oral for 90 Active Encounters Encounter Location Date Provider Diagnosis [facility] [address] [facility] [address] [place] [id number] 08/24/2023 Noam Jay Plan Of Treatment No Information Progress Notes * Renato CHONG MDOB:[birth year] (84 yo M)Acc No.[id number]:08/24/2023 Progress Note Patient:?Renato CHONG Provider:?Noam Jay DPM :1940???Age:83 Y???Sex:Male Elier e:08/24/2023 Address:[address], [place], [id number] Pcp:Alem Dennison Subjective: * Chief Complaints: * ??? * HPI: ???Foot Pain:?Nature:?numbness, tingling, loss of balance and falling and feeling of loss of muscle mass right leg.?Location?B/L, R>L.?Duration:?1 year.?Onset/Cause:?unknown.?Course:?worse.?Aggrevated:?standing, walking.?Treatments:?none.?Quality/Severity?moderate.? * Medical History:?Arthritis, Back,Hip,and Knee pain, High blood pressure, Psoriasis, Cataracts, Reflux, Chicken pox, Numbness. * Medications:?Taking Donepezi l HCl 5 MG Tablet 1 tablet at bedtime Orally Once a day , Taking Sertraline HCl 100 MG Tablet 1 tablet Orally Once a day , Taking Atorvastatin Calcium 20 MG Tablet Oral , Taking Aspirin 81 MG Tablet Delayed Release 1 tablet Orally Once a day , Taking Lisinopril 20 MG Tablet Orally , Taking Tamsulosin HCl 0.4 MG Capsule 1 capsule Orally Once a day , Taking Physical Therapy . . . . 2- 3x/week , Not-Taking/PRN Vitamin D 25 MCG (1000 UT) Tablet 1 tablet Orally Once a day , Not-Taking/PRN Humira Pen 40 MG/0.8ML Pen-injector Kit as directed Subcutaneous , Not-Taking/PRN Omeprazole 20 MG Capsule Delayed Release Orally , Not-Taking/PRN Fish Oil 1000 MG Capsule Delayed Release Orally , Not-Taking/PRN Flax Seed Oil 1300 MG Capsule Orally Objective: * Vitals:? Assessment: Plan: * Treatment: * Images: * The named appointment provid er may or may not be the originator of this progress note, and it is not deemed complete until electronically signed by the appointment provider. Sign off status: Pending * Provider:Keon Jay DPM Date:? 024 Generated for Jose Alfredo harrell/Alexander/Trish on:?10/31/2024 09:45 AM EDT History and Physical Notes * HPI (History of Present Illness) Category Sub-Category Detail Notes Category Not es Foot Pain Aggrevated: standing, walking Onset/Cause: unknown Course: worse Duration: 1 year Nature: numbness, tingling, loss of balance and falling and feeling of loss of muscle mass right leg Treatments: none Quality/Severity moderate Location B/L, R>L
--- OUTSIDE RECORDS SUMMARY | 2024-10-31 09:45 | XMS_ITS | Encounter Summary ---
Author Organization [employer] Address [address] [facility] 7[address] [place] [address] Care Team Providers Care Director Of Outreach Name Role Phone Alem Dennison MD Primary Care Provider [phone] Reason for Referral * Consultation (Urgent) - Authorized Specialty Diagnoses / Procedures Referred By Diamond abdul Referred To Contact Pharmacy Diagnoses Primary hypertension Alem Dennison MD [address] [place] [address] Phone: tel: fax: Referral ID Status Reason Start Date Expiration Date Visits Requested Visits Authorized [id number] Authorized Consult and Treat 10/30/2024 10/30/2025 6 6 * Consultation (Urgent) - Closed Specialty Diagnoses / Procedures Referred By Diamond abdul Referred To Contact Neurology Diagnoses Memory loss Alem Dennison MD [address] [place] [address] Phone: tel: fax: Dung Lawson MD [address] [place] [address] [place] [address] Phone: tel: fax: Referral ID Status Reason Start Date Expiration Date V isits Requested Visits Authorized [id number] Closed Specialty Services Required 10/30/2024 10/30/2025 1 1 Encounter Details Date Type Department Care Team (Late st Contact Info) Description 10/30/2024 11:40 AM EDT Telemedicine [facility] [address] [place] [address] Alem Dennison MD [address] [place] [address] Memory loss (Primary Dx); Primary hypertension; Anxiety and depression; Arthralgia, unspecified joint Social History Tobacco Use Types Packs/Day Years [...] your housing situation today? I have wild jocelin 06/02/[address] you li [...] AM EDT documented as of this encounter Progress Notes * Alem Dennison MD - 10/30/2024 11:40 AM EDT Subjective Patient ID: Renato Charles is a 84 y.o. male who presents for No chief complaint on file.. Memory Loss Symptoms associated with memory loss include changes in short-term memory and day/night behavior changes. Behavorial problems for memory loss include suspiciousness and agitation. Family and/or patient concerns for memory loss include medication errors. Review of Systems Constitutional: Negative. Respiratory: Negative. Cardiovascular: Negative. Gastrointestinal: Negative. Genitourinary: Negative. Objective Physical Exam Psychiatric: Mood and Affect: Mood normal. Behavior: Behavior normal. Thought Content: Thought content normal. Judgment: Judgment normal. Assessment/Plan Diagnoses and all orders for this visit: Memory loss Comments: Restarted on Aricept Referred to Neuro Orders: - Referral to Neurology; Future - Basic Metabolic Panel; Future - Lipid Panel, Standard; Future - Hepatic Function Panel; Future Primary hypertension Comments: No changes in meds Maintain a low-sodium diet (less than 2 grams per day). Maintain a regular cardiovascular exercise program. Advised to maintain a low-fat, low-cholesterol diet. Orders: - Basic Metabolic Panel; Future - Lipid Panel, Standard; Future - Hepatic Function Panel; Future - Referral to Pharmacy CDTM Anxiety and depression Comments: Strongly advised Therapy Arthralgia, unspecified joint Comments: He states he has been on Humira before and has been not getting it for 8 mnths Orders: - Rheumatoid Factor; Future Other orders - sertraline (Zoloft) 50 MG tablet; Take 1 tablet (50 mg) by mouth Once per day. - donepezil (Aricept) 5 MG tablet; Take 1 tablet (5 mg) by mouth at bedtime. documented in this encounter Plan of Treatment Upcoming Encounters Date Type Department Care Team (Late st Contact Info) Description 11/28/2024 11:15 AM EDT Telemedicine [facility] [address] [place] [address] Alem Dennison MD [address] [place] [address] Scheduled Orders Name Type Priority Associated Diagnoses Orde r Schedule Basic Metabolic Panel Lab Routine Memory loss Primary hypertension Expected: 10/30/2024 (Approximate), Expires: 10/30/2025 Lipid Panel, Standard Lab Routine Memory loss Primary hypertension Expected: 10/30/2024 (Approximate), Expires: 10/30/2025 Hepatic Function Panel Lab Routine Memory loss Primary hypertension Expected: 10/30/2024 (Approximate), Expires: 10/30/2025 Rheumatoid Factor Lab Routine Arthralgia, unspecified joint Expected: 10/30/2024, Expires: 10/30/2025 Scheduled Referrals Name Type Priority Associated Diagnoses Orde r Schedule Referral to Neurology Outpatient Referral Urgent Memory loss Expected: 10/30/2024 (Approximate), Expires: 10/30/2025 Referral to Pharmacy CDTM Outpatient Referral Urgent Primary hypertension Ordered: 10/30/2024 documented as of this encounter Visit Diagnoses Diagnosis Memory loss- Primary Primary hypertension Unspecified essential hypertension Anxiety and depression Arthralgia, unspecified joint documented in this encounter Care Teams Director Of Outreach Relationship Specialty Start Date End Date Alem Dennison MD [address] [place] [id number] PCP - General Family Medicine 04/02/23 documented as of this encounter
--- OUTSIDE RECORDS SUMMARY | 2024-10-31 09:45 | XMS_ITS | Data Portability ---
Author Organization [facility], PAIN OFFICE Address [address] [facility] [address] [place] [address] Care Team Providers Care Wrapper Rewinder Name Role Phone YARITZA MELENDEZ Primary Care Provider AUBRIE STACY Referring Provider Assessment Encounter Date Assessment Date Assessment LastModified by Organization Details LastModified Time 09/05/2015 09/05/2015 Renato banerjee is a 75? ? ?year old man with low back pain radiating into right lower extremity . On exam ,he has pain on flexion. MRI Lumbar spine shows L2-L3: There is broad-based disc bulge, and uncovering of the disc posteriorly due to spondylolisthesis resulting in effacement of the ventral thecal sac . Posterior laminotomy changes are present. Findings result in moderate narrowing of the spinal canal, with severe right, and moderate left neural foraminal narrowing . L3-L4: There is broad-based disc bulge, with facet arthrosis and ligamentum flavum redundancy resulting in moderate narrowing of spinal canal . There is moderate neuroforaminal narrowing right greater left at this level . L4-L5: There is broad-based disc osteophyte complex, with superimposed left paracentral disc protrusion versus nonenhancing epidural fibrosis. ? ? ?There are left hemilaminectomy changes at this level. Severe bilateral neuroforaminal narrowing is not significantly changed. . Trial of Lumbar epidural steroid injections under fluoroscopic guidance was recommended. The risks and benefits of the procedure? ? ? were discussed in detail. He wishes to proceed. An appointment has been booked for the same. He needs a electric truck driver on the day of the procedure. [email or web address] Not available 09/10/2015 10:53:26 09/18/2015 09/18/2015 Renato banerjee is a 75? ? ?year old man with low back pain radiating into right lower extremity . On exam ,he has pain on flexion.? ? ? He is here for trial of Lumbar epidural steroid injections under fluoroscopic guidance. The risks and benefits of the procedure? ? ? were discussed in detail. He wishes to proceed. He will follow up in four weeks. [email or web address] Not available 09/18/2015 15:24:53 09/27/2015 09/27/2015 Renato banerjee is a 75? ? ?year old man with low back pain radiating into right lower extremity .? He is here for follow up after a trial of Lumbar epidural steroid injections under fluoroscopic guidance. He reports good pain benefit which is ongoing. He is complaining of neck pain radiating into right upper back. On exam, he has trigger point in his right trapezius muscle. I recommend a trial of trigger point injection in his right trapezius muscle under ultrasound guidance.? ? ?The risks and benefits of the procedure? ? ? were discussed in detail. He wishes to proceed. An appointment has been booked for the same. He needs a electric truck driver on the day of the procedure. [email or web address] Not available 10/02/2015 10:33:18 12/04/2015 12/04/2015 Renato banerjee is a 75? ? ?year old man with? ? ?neck pain radiating into right upper back. On exam, he has trigger point in his right trapezius muscle.? ? ?He is here for? ? ?a trial of trigger point injection in his right trapezius muscle under ultrasound guidance.? ? ?The risks and benefits of the procedure? ? ? were discussed in detail. He wishes to proceed. He will follow up as needed. [email or web address] Not available 12/04/2015 14:51:53 Plan of Treatment Reminders Order Date Submit Date Provider Last Modified By Organization Details Last Modified Time Details Appointments None record ed. Lab None record ed. Referral None record ed. Procedures None record ed. Surgeries None record ed. Imaging None record ed. Medication Orders None record ed. Patient TargetsNo targets recorded. Patient Instructions Encounter Date Encounter Id Patient Instructions Last Modified By Organization Details Last Modified Time 09/05/2015 [id number] He was advised against bed rest lasting longer than four days and to continue activities as tolerated. [email or web address] Not available 09/10/2015 10:49:35 09/18/2015 [id number] He was advised against bed rest lasting longer than four days and to continue activities as tolerated. [email or web address] Not available 09/18/2015 15:22:10 09/27/2015 [id number] He was advised against bed rest lasting longer than four days and to continue activities as tolerated. [email or web address] Not available 10/02/2015 10:10:11 12/04/2015 [id number] He was advised against bed rest lasting longer than four days and to continue activities as tolerated. [email or web address] Not available 12/04/2015 14:50:02 Reason for Referral None Reported. Problems Name Problem SNOMED Code Status Onset Date Resolution Date Notes Provider Name and Address Organization Details Recorded Time Spinal stenosis of lumbar region 53164354 Darrel azar MD [address] , [address], [place], [address], [place] [facility] 6 14:51:53 Displacement of lumbar intervertebral disc without myelopathy 28453124 Darrel azar MD [address] , [address], [place], [address], [place] [facility] 6 14:51:53 Lumbosacral radiculitis 30289896 Darrel azar MD [address] , [address], [place], [address], [place] [facility] 6 14:51:53 Lumbosacral spondylosis without myelopathy 16453601 Darrel azar MD [address] , [address], [facility] [place], [address], [place] [facility] 6 14:51:53 Lumbar post-laminecto my syndrome [id number] Darrel azar MD [address] , [address], [facility] [place], [address], [place] [facility] 6 14:51:53 Muscle pain 95347346 Darrel azar MD [address] , [address], [place], [address], [facility] 14:51:53 Degeneration of intervertebral disc 77466834 Active Kim azar MD [address] [facility] , [address], [facility], [address], [facility] - [facility] 6 14:51:53 Problem Notes None recorded. Procedures Surgical History Date Name Laterality Status Provider Name and Address Organization Details Recorded Time 12/04/19 16 Trigger Point Injections under ultrasound guidance completed Kim De Los Santos MD [address] [facility] [facility] , [address], [place], [address], [facility] - [facility] 12/04/2015 14:51:54 09/18/19 16 Lumbar Epidural steroid injection under fluoroscopic guidance completed Kim De Los Santos MD [address] [facility] [facility] , [address], [place], [address], [facility] - [facility] 09/18/2015 15:24:53 Back Surgery completed Clau Larios [place] - [facility] 09/05/2015 14:35:58 Other completed Clau Larios [place] [facility] 09/05/2015 14:31:00 Imaging Results None recorded. Procedure Notes None recorded. Medical Equipment None Reported. Allergies No known drug allergies Medications Name Sig Start Date Stop Date Status Note LastModified by Organization Details LastModified Time terazosin 5 mg capsule active Not Available Not Available Not Available atorvastatin 20 mg tablet active Not Available Not Available No t Available oxybutynin chloride ER 10 mg tablet,extended release 24 hr active Not Available Not Availabl e Not Available diltiazem CD 180 mg capsule,extende d release 24 hr Take 1 capsule every day by oral route. active Not Available Not Available No t Available citalopram 10 mg tablet active Not Available Not Available No t Available omeprazole 40 mg capsule,delayed release Take 1 capsule every day by oral route. active Not Available Not Available No t Available aspirin 81 mg tablet,delayed release Take 1 tablet every day by oral route. active Not Available Not Available No t Available alprazolam 0.25 mg tablet active Not Available Not Available No t Available terazosin 2 mg capsule active Not Available Not Available Not Available lisinopril 10 mg tablet active Not Available Not Available No t Available sertraline 25 mg tablet active Not Available Not Available No t Available betamethasone dipropionate 0.05 % topical ointment active Not Available Not Available Not Available calcipotriene 0.005 % topical ointment active Not Available Not Available Not Available Restasis 0.05 % eye drops in a dropperette active Not Available Not Available Not Available atorvastatin 30 mg daily active Not Available Not Available No t Available Vitals Date Recorded Body mass index (BMI) Heart rate Oxygen saturation Oxygen saturation in Arterial blood by Pulse oximetry Body height Body weight Systolic blood pressure Diastolic blood pressure Provider Name and Address Organization Details Last Updated DateTime 6 26.5 kg/m2 67 /min 97 % 97 % 167.64 cm 64552.1 4868 g 167 mm[Hg] 92 mm[Hg] Clau Larios [place] - [facility] 6 14:31:01 Date Recorded Oxygen saturation Oxygen saturation in Arterial blood by Pulse oximetry Heart rate Systolic blood pressure Diastolic blood pressure Provider Name and Address Organization Details Last Updated DateTime 6 98 % 98 % 78 /min 147 mm[Hg] 89 mm[Hg] Clauwalter ConstantinoLarios [place] - [facility] 6 10:33:31 Date Recorded Oxygen saturation Oxygen saturation in Arterial blood by Pulse oximetry Heart rate Systolic blood pressure Diastolic blood pressure Provider Name and Address Organization Details Last Updated DateTime 6 99 % 99 % 66 /min 152 mm[Hg] 83 mm[Hg] Clauwalter ConstantinoLarios [place] - [facility] 6 11:11:14 Date Recorded Heart rate Oxygen saturation Oxygen saturation in Arterial blood by Pulse oximetry Systolic blood pressure Diastolic blood pressure Provider Name and Address Organization Details Last Updated DateTime 6 66 /min 98 % 98 % 129 mm[Hg] 90 mm[Hg] Clauwalter ConstantinoLarios [place] - [facility] 6 13:33:40 Social History Question Answer Notes LastModified by Organizat ion Details LastModified Time Tobacco Smoking Status Former Smoker Quit x 11 years Not Available [employer] 04/19/2020 03:16:10 What Is Your Level Of Alcohol Consumption? Moderate [id number] Information not available 04/19/2020 Which Illicit Or Recreational Drugs Have You Used? 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 With Others Information not available 09/05/2015 Marital Status Informatio n not available 09/05/2015 How Many Years Have You Smoked Tobacco? 45 [id number] Information not available 04/19/2020 Sex: Unknown Functional Status None recorded. Mental Status None recorded. Family History Relationship Description Onset Age of this Age Resolved Age Notes LastModified by Organization Details LastModified Time Father Hypertensive disorder [email or web address] Not available 07/2015 14:11:50 Mother Hypertensive disorder [email or web address] Not available 07/2015 14:11:50 Notes:Mutiple family members with history of HTN Medical History Condition Response Coronary Artery Disease Y Arthritis Y Hypertension Y GERD/Reflux Y High Cholesterol Y Past Encounters Encounter ID Performer Location Encounter Start Date Encounter Closed Date Diagnosis/Indication Diagnosis SNOMED-CT Code Diagnosis ICD10 Code Diagnosis Note [id number] Kim De Los Santos MD PAIN OFFICE [address] [place] [address] 09/05/2015 13:54:40 09/10/2015 10:54:35 Displacement of lumbar intervertebral disc without myelopathy 56612359 M51.26 Lumbar post-laminectomy syndrome 643786435 M96.1 Lumbosacra l radiculitis 39986054 M54.17 Lumbosacra l spondylosis without myelopathy 78094527 M47.817 Spinal michelle nosis of lumbar region 01832925 M48.06 [id number] Kim De Los Santos MD [facility] [address] [place] [address] 09/18/2015 10:24:22 09/18/2015 15:26:34 Spinal stenosis of lumbar region 05629728 M48.06 Lumbosacra l spondylosis without myelopathy 31513181 M47.817 Displaceme nt of lumbar intervertebral disc without myelopathy 81721719 M51.26 Lumbosacra l radiculitis 99538507 M54.17 Lumbar post-laminectomy syndrome 694535938 M96.1 [id number] Kim De Los Santos MD [facility] [address] [place] [address] 09/27/2015 10:54:57 10/02/2015 10:34:00 Spinal stenosis of lumbar region 26489524 M48.06 Lumbosacra l spondylosis without myelopathy 22920527 M47.817 Displaceme nt of lumbar intervertebral disc without myelopathy 55019440 M51.26 Lumbosacra l radiculitis 32250669 M54.17 Lumbar post-laminectomy syndrome 960923805 M96.1 Muscle pain 01968419 M79 .1 Degenerati on of intervertebral disc 45434947 M50.32 [id number] Kim De Los Santos MD [facility] [address] [place] [address] 12/04/2015 13:23:51 12/04/2015 14:52:31 Muscle pain 41378483 M79.1 Spinal michelle nosis of lumbar region 87082565 M48.06 Lumbosacra l spondylosis without myelopathy 89661490 M47.817 Displaceme nt of lumbar intervertebral disc without myelopathy 02173996 M51.26 Lumbosacra l radiculitis 11182165 M54.17 Lumbar post-laminectomy syndrome 844830749 M96.1 Degenerati on of intervertebral disc 53019599 M50.32 Health Concerns Section Related Observation LastModified by Organization Detai ls LastModified Time None Recorded Concern Status LastModified by Organization Details LastModified Time None Recorded Advance Directives Directive None Recorded Payers Encounter Date Sequence Insurance Name Policy Number Policy Tobin Covered Member ID Tobin Member ID Guarantor Name 09/05/2015 1 [facility] - MEDICARE PREFERRED (MEDICARE REPLACEMENT HMO) WARREN Chong [id number] Renato Chong 09/18/2015 1 [employer] [facility] - MEDICARE PREFERRED (MEDICARE REPLACEMENT HMO) WARREN Chong [id number] Renato Chong 09/27/2015 1 [facility] MEDIC[facility] PREFERRED (MEDICARE REPLACEMENT HMO) WARREN Chong [id number] Renato Chong 12/04/2015 1 [facility] - MEDICARE PREFERRED (MEDICARE REPLACEMENT HMO) [id number] Renato Chong [id number] Renato Chong Notes Date Note Type Note Provider Name and Address Organization Details Recorded Time 09/05/2015 text/html Pain Management L-spineReported bypatient.Location:Jose Alfredo Chong is a 75 year old man with complaints of low back pain radiating into right lower extremity. The pain started spontaneously in November 2014 and is becoming greater Quality:He describes the pain as a stabbing pain He likes to exercise at the gym regularly and the pain is interfering with activities at the gym. Severity:current pain level 7/10; worst pain 8/10;worsening Duration:constant Onset/Timing:gradual onset Context:cannot identify Alleviating Factors:rest; lying down Aggravating Factors:standing; walking; He states he is unable to walk long distances. He has history of neuroclaudication. Associated Symptoms:no weakness; no numbness; no bladder compromise; no bowel compromise Radiation:right LE Work Related:no ADL (Activities of Daily Living):walking; sweeping; mopping Prior Imaging:MRI; MRI Lumbar spine shows L2-L3: There is broad-based disc bulge, and uncovering of the disc posteriorly due to spondylolisthesis resulting in effacement of the ventral thecal sac . Posterior laminotomy changes are present. Findings result in moderate narrowing of the spinal canal, with severe right, and moderate left neural foraminal narrowing . L3-L4: There is broad-based disc bulge, with facet arthrosis and ligamentum flavum redundancy resulting in moderate narrowing of spinal canal . There is moderate neuroforaminal narrowing right greater left at this level . L4-L5: There is broad-based disc osteophyte complex, with superimposed left paracentral disc protrusion versus nonenhancing epidural fibrosis. There are left hemilaminectomy changes at this level. Severe bilateral neuroforaminal narrowing is not significantly changed. Prior EMG:none Previous Surgerylaminectomy; He is S/P back surgery by Dr. Rivera in 2014 with persistent pain. He had a previous back surgery in 1977 with good results. Previous Injections:none Previous PT:did not help; aggravated symptoms He also has neck pain. Kim De Los Santos MD [address] [place] [address] , [address], [place], [address], [place] [facility] 09/12/2015 09:34:26 09/18/2015 text/html He is here for a trial of lumbar epidural steroid injection under fluoroscopic guidance. Kim De Los Santos MD [address] [facility] , [address], [place], [address], [place] [facility] 09/20/2015 09:55:40 09/27/2015 text/html Renato banerjee is a 75 year old man with complaints of right hip pressure . He is S/P lumbar epidural steroid injection under fluoroscopic guidance. He reports some pain benefit. He states he is concerned about the pressure sensation in his right hip/buttock region. He has an appointment with a neurosurgeon, Dr. Billings. He has complaints of neck pain radiating into right upper back. He has no radiating pain, numbness or weakness in his upper extremities. He has no history of bladder or bowel incontinence. He is right handed. MRI Cervical Spine shows degenerative disc and facet hypertrophic changes with mild spinal canal narrowing at C3-4 level. Mild right neuroforaminal narrowing at C6-7 level is present. Kim De Los Santos MD [address] [facility] , [address], [place], [address], [place] [facility] 10/14/2015 08:33:40 12/04/2015 text/html He is here for a trial of right trapezius muscle trigger point injection under ultrasound guidance. He reports good pain benefit for one month after the lumbar epidural steroid injection with return of pain back to baseline. He is scheduled for surgery with Dr. Billings for Coflex device placement on January 2016 Kim De Los Santos MD [address] [facility] , [address], [place], [address], [place] [facility] 12/05/2015 09:05:33
--- OUTSIDE RECORDS SUMMARY | 2024-10-31 09:46 | XMS_ITS ---
Author Organization [facility] Address [address] [facility] [place] [address] Care Team Providers Care Aquaculture Farm Manager Name Role Phone Alem Dennison Primary Care Provider Noam Da Silva [phone] Encounters Encounter Location Date Provider Diagnosis [facility] [address] [place] [address] 08/31/2023 Noam Jay Plan Of Treatment No Information Progress Notes * Renato CHONG MDOB:[birth year] (84 yo M)Acc No.[id number]:08/31/2023 Progress Notes Patient:?MANASRenato GRAFF Provider:Keon Jay DPM :1940???Age:83 Y???Sex:Male Elier e:08/31/2023 Address:[address] [facility], [phone] Pcp:Alem Dennison Subjective: * Chief Complaints: * ??? * Medical History:? Objective: * Vitals:? Assessment: Plan: * Treatment: * Images: * The named appointment provid er may or may not be the originator of this progress note, and it is not deemed complete until electronically signed by the appointment provider. Sign off status: Pending * Provider:?Noam Jay DPM Date:? 024 Generated for Printi ng/Faxing/eTransmitting on:?10/31/2024 09:45 AM EDT
--- OUTSIDE RECORDS SUMMARY | 2024-10-31 09:46 | XMS_ITS ---
Author Organization [facility] [place] Address [address] [facility] [place] [address] Care Team Providers Care Scrubbing Machine Operator Name Role Phone Alem Dennison Primary Care Provider Noam Da Silva [phone] REASON FOR VISIT sd cx 08/24/2023 Encounters Encounter Location Date Provider Diagnosis [address] [place] [address] 08/24/2023 Noam Jay Plan Of Treatment No Information Progress Notes * Renato CHONG MDOB:[birth year] (83 yo M)Acc No.[id number]:08/24/2023 Patient:?Renato Chong :1940???Age:83 Y???Sex:Male Address:[address], [address], [place] [address] * true * Date:? Generated for Printi ng/Fachelitag/eTransmitting on:?10/31/2024 09:45 AM EDT
--- OUTSIDE RECORDS SUMMARY | 2024-10-31 09:46 | XMS_ITS | Patient Health Record ---
Author Organization [employer] Address [address] [place] [address] Care Team Providers Care Command Center Analyst Name Role Phone Narda Caba Unavailable [phone] Allergies No Known Allergies Reason For Referral No Information Medications Medication SIG (Take, Route, Frequency, Duration) Notes Start Date End Date Status Fluticasone Propionate 50 MCG/ACT SHAKE LIQUID AND USE 1 SPRAY IN EACH NOSTRIL TWICE DAILY for 90 Active Tamsulosin HCl 0.4 MG TAKE 1 CAPSULE BY MOUTH ONCE DAILY Diagnosis Unavailable Oral for 90 Not-Taki ng Lisinopril 20 MG TAKE 1 TABLET BY DOUG TH DAILY Oral for 90 Not-Taking Sertraline HCl 50 MG 1 tablet Oral Once a day for 90 days Active Atorvastatin Calcium 20 MG TAKE 1 TABLET BY MOUTH DAILY Oral for 90 Active Omeprazole 20 MG TAKE 1 CAPSULE BY MO UTH DAILY Oral for 90 Active Aspirin 81 Active Social History Tobacco Use: Social History Observation Description Date Details (start date - stop date) Never Smoker NA - NA Tobacco Use/Smoking Question Answer Notes Are you a nonsmoker Alcohol Screen (Audit-C) Question Answer Notes Did you have a drink contain ing alcohol in the past year? Yes How often did you have a dri nk containing alcohol in the past year? 2 to 3 times a week (3 points) How many drinks did you have on a typical day when you were drinking in the past year? 1 or 2 drinks (0 point) How often did you have 6 or more drinks on one occasion in the past year? Never (0 point) Points 3 Interpretation Negative Problems Problem Type SNOMED Code ICD Code Onset Dates Problem Status W/U Status Risk Notes Problem 929055539 Pure hypercholesterolemia (E78.00) Active confirmed Problem 08524148 Recurrent major depressive disorder, in partial remission (F33.41) Active confirmed Problem 78115149 Memory loss (R41.3) Active confirmed Problem 824106033 Neuropathy (G62.9) Active confirmed Problem 711188813 Syncope, unspeci fied syncope type (R55) Active confirmed Problem 49878811 CAD in squaxin ar tone (I25.10) Active confirmed Problem 245150732409550 History of synco pe (Z87.898) Active confirmed Problem 15088802 Unstable gait (R26.81) Active confirme d Problem 756822106 S/P PTCA (percut aneous transluminal coronary angioplasty) (Z98.61) Active confirmed Problem 172766940 H/O fall (Z91.81) Active confirmed Problem 860756891 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) Active confirmed Problem 15417123 Reflux gastritis (K29.60) Active confirmed Problem 89874220 Primary hyperten deb (I10) Active confirmed Problem 11639630 Dysfunction of b oth eustachian tubes (H69.93) Active confirmed Problem 439322964 H/O dehydration (Z86.39) Active confirmed Plan Of Treatment Pending Test Test Name Order Date VITAMIN B12 12/24/2022 PCP - COA 12/03/2022 PCP - COA 12/10/2022 Hospital Discharge Visit 12/10/2022 PCP - Diabetic Foot Exam 12/10/2022 Insurance Providers Payer Name Payer Address Payer Phone Subscriber Number Group Number Insured Name Patient Relationship to Insured Coverage Start Date Coverage End Date [employer] MED[employer] HMO [address] [place] [id number] Renato HACKETT Self - patient is the insured Medical (General) History Medical History History ICD Code Type 2 Diabetes Depression Hyperlipidema Surgical History Surgery Date(Month/Year) stent Hammer toe Back surgery
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
--- OUTSIDE RECORDS SUMMARY | 2024-10-31 09:46 | XMS_ITS | Encounter Summary ---
Author Organization [employer] Address [address] [facility] [address] [place] [address] Care Team Providers Care Castings Trimmer Name Role Phone Alem Dennison MD Primary Care Provider [phone] Reason for Visit * Reason Onset Date Comments Request For Order(s) 07/27/2023 Encounter Details Date Type Department Care Team ([facility] st Contact Info) Description 07/27/2023 Telephone [facility] MED & PEDS [address], [place] [phone] Alem Dennison MD [address] [place], [place] [phone] Request For Order(s) Social History Tobacco Use Types Packs/Day Years [...] AM EDT documented as of this encounter Miscellaneous Notes * Telephone Encounter - Jennifer Campoverde RN - 07/27/2023 12:11 PM EST Order faxed to office as requested. Confirmation received. * Telephone Encounter - Haily Buitrago - 07/27/2023 11:11 AM EST Tc from [facility] requesting a written order for OT/PT to be faxed [phone]. Any questions, contact phoebe at [phone] documented in this encounter Plan of Treatment Upcoming Encounters Date Type Department Care Team (Late st Contact Info) Description 11/28/2024 11:15 AM EDT Telemedicine [facility] MED & PEDS [address] [place] [address] Alem Dennison MD [address] [place] [address] documented as of this encounter Visit Diagnoses Not on filedocumented in this encounter Care Teams Castings Trimmer Relationship Specialty Start Date End Date Alem Dennison MD [address] [place] [id number] PCP - General Family Medicine 04/02/23 documented as of this encounter
--- OUTSIDE RECORDS SUMMARY | 2024-10-31 09:46 | XMS_ITS | Encounter Summary ---
Author Organization [employer] Address [address] [facility] [address] [place] [address] Care Team Providers Care Wide Area Network Engineer Name Role Phone Alem Dennison MD Primary Care Provider [phone] Reason for Visit * Reason Onset Date Comments Nurse Triage 04/02/2023 Encounter Details Date Type Department Care Team ([facility] st Contact Info) Description 04/02/2023 Telephone [facility] MED & PEDS [address] [place], [place] [phone] Alem Dennison MD [address] [place] [address] Nurse Triage Social History Tobacco Use Types Packs/Day Years Used Date Smoking Tobacco: Former Cigarettes Q uit: 1992 Sex and Gender Information Value Date Recorded Sex Assigned at Male 03/17/2023 11:20 AM EDT Legal Sex Male 11:17 AM EDT Gender Identity Male 03/17/2023 11:20 AM EDT Sexual Orientation Straight 03/17/2023 11 :20 AM EDT documented as of this encounter Miscellaneous Notes * Telephone Encounter - Vanessa Loco RN - 04/02/2023 4:13 PM EDT Triage call attempted to contact x2. Pt didn't answer. Left voice message to call [facility] [phone] * Telephone Encounter - Kathleen Townsend - 04/02/2023 3:53 PM EDT Symptom: Toenail Symptoms (darker) Outcome: Schedule an appointment to be seen within 3 days Reason: Caller denied all higher acuity questions The caller accepted this outcome documented in this encounter Plan of Treatment Upcoming Encounters Date Type Department Care Team (Late st Contact Info) Description 11/28/2024 11:15 AM EDT Telemedicine [facility] MED & PEDS [address] [place] [address] Alem Dennison MD [address] [place] [address] documented as of this encounter Visit Diagnoses Not on filedocumented in this encounter Care Teams Wide Area Network Engineer Relationship Specialty Start Date End Date Alem Dennison MD [address] [place] [id number] PCP - General Family Medicine 04/02/23 documented as of this encounter
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
[2024-10-31 14:42] LABS: Rheumatoid Factor < 13.0 IU/mL (<15.0)
[2024-10-31 15:22] LABS: Alanine Aminotransferase 17 U/L (0-40); Albumin Level 4.1 g/dL (3.5-5.0); Alkaline Phosphatase 57 U/L (39-117); Anion Gap 10 (12-20); Aspartate Amino Transferase 32 U/L (5-37); Bilirubin Direct 0.3 mg/dL (0.0-0.5); Bilirubin Total 0.7 mg/dL (0.0-1.0); Blood Urea Nitrogen 17 mg/dL (9-16); Calcium 8.8 mg/dL (8.4-10.2); Carbon Dioxide 27 mmol/L (22-29); Chloride 107 mmol/L (96-108); Cholesterol 158 mg/dL (<200); Estimated Glomerular Filt Rate > 60; Glucose Random 91 mg/dL (60-115); HDL Cholesterol 59 mg/dL (>40); LDL Cholesterol Calculated 80 mg/dL (<100); Potassium 4.1 mmol/L (3.3-5.1); Sodium 140 mmol/L (135-145); Total Protein 7.1 g/dL (6.5-8.0); Triglycerides 99 mg/dL (<150)
== END 2024-10-31 09:06 | disposition home or self-care (01) ==
LOC: HO.CHCLDS 09:05
PROVIDERS: Visit Provider Student in an Organized Health Care Education/Training Program
DX: R41.3 Other amnesia (principal); I10 Essential (primary) hypertension; M25.50 Pain in unspecified joint
CPT/HCPCS: 36415; 80048; 80061; 80076; 86431